=== PATIENT | female | born 1985 | race Two or more races ===

== ENCOUNTER 2016-07-03 17:42 | Emergency (ER) | payer SELFPAY ==
[~2016-07-03] VITALS: Ht 160 cm; Wt 44.9 kg
--- NOTE | 2016-07-03 17:52 | NUR ---
PT [facility]IBRA TO ER BED 12. ALTERED, AGITATED POSSIBLE ETOH. PER REPORT, PT WAS BREAKING STUFF IN HER APARTMENT. WENT OUTSIDE AND WAS ROLLING IN THE DIRT. NO OBVIOUS TRAUMA NOTED. PLACED ON MONITOR. STABLE VITALS. AWAITING MD ROMO.
--- NOTE | 2016-07-03 17:55 | NUR ---
vel leach at bedside for eval.
--- NOTE | 2016-07-03 18:10 | NUR ---
PT TO RADIOLOGY FOR HEAD CT SCAN VIA [facility].
--- NOTE | 2016-07-03 20:30 | NUR ---
LUCY GUTIERREZ BACK AT BEDSIDE TALKING TO PT AND FAMILY. PT IS AWAKE VERBALLY RESPONSIVE. FAMILY ASSUMING RESPONSIBILTY AND WILL LIKE TO TAKE PT HOME. CLEARED FOR DISCHARGE.
--- NOTE | 2016-07-03 20:54 | NUR ---
Patient discharged to home in stable condition. Written and verbal after care instructions given. Patient and Family verbalizes understanding of instruction.
[2016-07-03 20:56] VITALS: BP 115/61
== END 2016-07-03 20:57 | disposition home or self-care (01) ==
LOC: ER 17:46
DX: F10.129 Alcohol abuse with intoxication, unspecified (principal); R94.02 Abnormal brain scan
CPT/HCPCS: 70450; 99284; A4606; Z7610

== ENCOUNTER 2016-07-19 02:42 | Emergency (ER) | payer SELFPAY ==
[~2016-07-19] VITALS: Ht 152.4 cm; Wt 43.1 kg
--- NOTE | 2016-07-19 02:50 | NUR ---
TO BED 8 A 31 YO FEMALE BB RA102. PER EMS REPORT, PT WAS HITTING HEAD ON GROUND TRYING TO HURT SELF EMS REGISTERED CLINICAL DIETITIAN STATED BOYFRIEND ON SCENE ALLEGEDLY WITNESSED PT SMOKE METH. UPON ARRIVAL TO ER, PATIENT IS AAOX2, NO S/S OF ACUTE DISTRESS. BREATHING EVEN AND UNLABORED. NO OBVIOUS SIGNS OF HEAD TRAUMA. VSS. DENIES SI/HI. INITIATED COMFORT MEASURES. GOWNED. SAFETY AND SUICIDE PRECAUTIONS OBSERVED. CARDIAC MONITORING ON. DR CH AT BEDSIDE FOR EVAL.
[2016-07-19] MEDS ORDERED: IV NS 0.9% 1,000 ML BAG IV ONE ×2 (03:00→04:30)
[2016-07-19] MEDS ORDERED: IV NS 0.9% 1,000 ML ONE (03:09)
[2016-07-19] MEDS ORDERED: IV SET PRIMARY 1 EA INFUS.SET MC ONE (03:09)
[2016-07-19] MEDS ORDERED: OLANZAPINE 10 MG VIAL IM ONE ×2 (03:20→03:30)
[2016-07-19] MEDS ORDERED: WATER FOR INJECTION,STERILE 10 ML ONE (03:22)
[2016-07-19 03:43] LABS: BASOPHILS % (AUTO) 0.4 % (0.0-2.0); EOSINOPHILS % (AUTO) 0.3 % (0.0-6.0); HEMATOCRIT 38 % (33-45); LYMPHOCYTES # (AUTO) 1.1 /CMM (0.8-4.8); LYMPHOCYTES % (AUTO) 19.9 % (20.0-44.0); MEAN CORPUSCULAR HEMOGLOBIN 30 PG (26.0-33.0); MEAN CORPUSCULAR HGB CONC 34 g/dl (31.0-36.0); MEAN CORPUSCULAR VOLUME 88 fL (82-100); MONOCYTES # (AUTO) 0.6 /CMM (0.1-1.30); MONOCYTES % (AUTO) 9.8 % (2.0-12.0); NEUTROPHILS % (AUTO) 69.6 % (43.0-81.0); PLATELET COUNT (AUTO) 340 /CMM (150-450); RDW COEFFICIENT OF VARIATION 13.3 (11.5-15.0); WHITE BLOOD COUNT (AUTO) 5.7 K/uL (4.3-11.0)
--- NOTE | 2016-07-19 03:51 | NUR ---
patient to ct.
[2016-07-19 03:53] LABS: CALCIUM, SERUM 9.6 mg/dL (8.5-10.1); CARBON DIOXIDE 23 mmol/L (21-32); CHLORIDE 101 mmol/L (98-107); CREATININE 0.9 mg/dL (0.6-1.3); GLUCOSE 86 mg/dL (74-106); POTASSIUM 2.9 mmol/L (3.5-5.1); SODIUM SERUM 137 mmol/L (136-145); UREA NITROGEN, BLOOD 12 mg/dL (7-18)
[2016-07-19 03:55] LABS: INR 0.96 (0.87-1.13); PROTHROMBIN TIME 10.3 SECS (9.5-12.7)
[2016-07-19 03:58] LABS: ALANINE AMINOTRANSFERASE 34 U/L (12-78); ALBUMIN 4.4 g/dL (3.4-5.0); ALCOHOL, BLOOD < 3 mg/dL (0-0); ALKALINE PHOSPHATASE 76 U/L (46-116); ASPARTATE AMINOTRANSFERASE 34 U/L (15-37); BILIRUBIN,DIRECT 0.2 mg/dL (0.0-0.2); BILIRUBIN,TOTAL 0.7 mg/dL (0.2-1.0); TOTAL PROTEIN, SERUM 8.3 g/dL (6.4-8.2)
[2016-07-19] MEDS ORDERED: LORAZEPAM INJ 2 MG/ML VIAL ONE (03:58)
[2016-07-19 04:00] LABS: ACETAMINOPHEN 0 ug/ml (10-30); SALICYLATE 0.8 mg/dL (2.8-20.0)
[2016-07-19] MEDS ORDERED: LORAZEPAM INJ 2 MG/ML VIAL IV ONE ×2 (04:00→04:30)
[2016-07-19 04:03] LABS: SERUM AMMONIA 17 umol/L (11-32); TROPONIN I < 0.017 ng/mL (0.00-0.056)
[2016-07-19] MEDS ORDERED: Magnesium 1GM/D5W 100ML PREMIX 100 ML IV ONE ×2 (04:15→04:16)
[2016-07-19] MEDS ORDERED: IV SET PRIMARY PUMP SET 1 EA INFUS.SET MC ONE (04:15)
[2016-07-19] MEDS ORDERED: Magnesium 1 GM/2 ML VIAL IV ONE (04:30)
[2016-07-19] MEDS ORDERED: POTASSIUM CHLORIDE 20 MEQ TAB.PRT.SR PO ONE (04:30)
--- NOTE | 2016-07-19 04:54 | NUR ---
PATIENT IS SLEEPING AT THIS TIME. VSS MONITORING DONE.
[2016-07-19] MEDS ORDERED: POTASSIUM CHLORIDE 20 MEQ POWDER PACKET ONE (07:33)
--- NOTE | 2016-07-19 07:42 | NUR ---
POTASSIUM ORDERED AT 4:30 NOT GIVEN BY KEVAN RN, ATTEMPTED TO GIVE IT THIS MORNING BUT PATIENT REFUSED, DR PAREDES INFORMED AND SAID NOT TO WORRY ABOUT HER POTASSIUM.
[2016-07-19 17:11] VITALS: BP 125/67
== END 2016-07-19 17:15 | disposition home or self-care (01) ==
LOC: ER 02:43
DX: S09.90XA Unspecified injury of head, initial encounter (principal); F15.10 Other stimulant abuse, uncomplicated; R51 Headache; R79.1 Abnormal coagulation profile; W22.8XXA Striking against or struck by other objects, initial encounter; Y93.89 Activity, other specified; Y92.89 Other specified places as the place of occurrence of the external cause; Y99.9 Unspecified external cause status
CPT/HCPCS: 36415; 70450-TC; 80048-TC; 80076-TC; 82140-TC; 82962-TC; 84484-TC; 85025-TC; 85730-TC; A4606; G0480; J2060; J3475; J3490; J7030; Z7610

== ENCOUNTER 2016-08-11 03:04 | Emergency (ER) | payer SELFPAY ==
[~2016-08-11] VITALS: Ht 144.8 cm; Wt 40.8 kg
[2016-08-11] MEDS ORDERED: diphenhydrAMINE HCL 50 MG/ML VIAL ONE (03:06)
[2016-08-11] MEDS ORDERED: LORAZEPAM INJ 2 MG/ML VIAL ONE ×2 (03:07→03:18)
[2016-08-11] MEDS ORDERED: HALOPERIDOL LACTATE INJ 5 MG/ML VIAL ONE (03:07)
[2016-08-11] MEDS ORDERED: IV NS 0.9% 1,000 ML ONE (03:22)
[2016-08-11] MEDS ORDERED: IV SET PRIMARY 1 EA INFUS.SET MC ONE (03:22)
[2016-08-11] MEDS ORDERED: IV NS 0.9% 1,000 ML BAG IV ONE (03:30)
[2016-08-11] MEDS ORDERED: diphenhydrAMINE HCL 50 MG/ML VIAL IM ONE (03:30)
[2016-08-11] MEDS ORDERED: LORAZEPAM INJ 2 MG/ML VIAL IVP ONE (03:30)
[2016-08-11] MEDS ORDERED: HALOPERIDOL LACTATE INJ 5 MG/ML VIAL IM ONE (03:30)
[2016-08-11 04:06] LABS: BASOPHILS % (AUTO) 0.3 % (0.0-2.0); EOSINOPHILS # (AUTO) 0.1 /CMM (0.0-0.7); EOSINOPHILS % (AUTO) 1.1 % (0.0-6.0); HEMATOCRIT 37 % (33-45); HEMOGLOBIN 12.7 g/dL (11.5-14.8); LYMPHOCYTES # (AUTO) 1.5 /CMM (0.8-4.8); LYMPHOCYTES % (AUTO) 30.4 % (20.0-44.0); MEAN CORPUSCULAR HEMOGLOBIN 31 PG (26.0-33.0); MEAN CORPUSCULAR HGB CONC 34 g/dl (31.0-36.0); MEAN CORPUSCULAR VOLUME 89 fL (82-100); MONOCYTES # (AUTO) 0.5 /CMM (0.1-1.30); MONOCYTES % (AUTO) 11.3 % (2.0-12.0); NEUTROPHILS # (AUTO) 2.8 /CMM (1.8-8.9); NEUTROPHILS % (AUTO) 56.9 % (43.0-81.0); PLATELET COUNT (AUTO) 313 /CMM (150-450); RDW COEFFICIENT OF VARIATION 13.6 (11.5-15.0); RED BLOOD CELL COUNT(AUTO) 4.18 MIL/uL (4.0-5.2); WHITE BLOOD COUNT (AUTO) 4.9 K/uL (4.3-11.0)
[2016-08-11 04:21] LABS: INR 0.92 (0.87-1.13); PROTHROMBIN TIME 9.8 SECS (9.5-12.7)
[2016-08-11 04:23] LABS: CALCIUM, SERUM 8.8 mg/dL (8.5-10.1); CREATININE 0.8 mg/dL (0.6-1.3)
[2016-08-11 04:27] LABS: ALBUMIN 3.8 g/dL (3.4-5.0); BILIRUBIN,TOTAL 0.3 mg/dL (0.2-1.0); TOTAL PROTEIN, SERUM 7.5 g/dL (6.4-8.2)
[2016-08-11 04:30] LABS: SALICYLATE 1.3 mg/dL (2.8-20.0)
[2016-08-11] MEDS ORDERED: POTASSIUM CHLORIDE 20 MEQ TAB.PRT.SR PO ONE ×2 (04:55→05:00)
[2016-08-11] MEDS ORDERED: Magnesium 1GM/D5W 100ML PREMIX 200 ML IV ONE (04:56)
[2016-08-11] MEDS ORDERED: IV SET PRIMARY PUMP SET 1 EA INFUS.SET MC ONE (04:56)
[2016-08-11] MEDS ORDERED: Magnesium 1 GM/2 ML VIAL IV ONE (05:00)
[2016-08-11 06:44] LABS: APPEARANCE,URINE CLEAR (CLEAR); BILIRUBIN,URINE NEGATIVE (NEGATIVE); BLOOD, URINE TRACE-INTA Ery/uL (NEGATIVE); KETONES,URINE NEGATIVE (NEGATIVE); LEUKOCYTE ESTERASE ,URINE NEGATIVE (NEGATIVE); NITRITE, URINE NEGATIVE (NEGATIVE); PROTEIN,URINE NEGATIVE (NEGATIVE); UGLUCOSE NEGATIVE (NEGATIVE); UROBILINOGEN,URINE 0.2 EU/dL (0.2)
[2016-08-11 06:46] LABS: COLOR,URINE STRAW (YELLOW)
[2016-08-11 06:47] LABS: PREGNANCY TEST URINE QUAL NEGATIVE (NEGATIVE)
[2016-08-11 06:59] LABS: BACTERIA,URINE Rare /HPF (None Seen); RBC,URINE 0-2 /HPF (0-2); SQUAMOUS EPITHELIAL CELL,UR Rare /HPF (None Seen); WBC,URINE 0-2 /HPF (0-3)
[2016-08-11 08:38] VITALS: BP 115/78
== END 2016-08-11 08:39 | disposition home or self-care (01) ==
LOC: ER 03:05
DX: R41.82 Altered mental status, unspecified (principal); F19.10 Other psychoactive substance abuse, uncomplicated; E87.6 Hypokalemia
CPT/HCPCS: 36415; 80048; 80076; 80305; 80329; 81001; 84703; 85025; 85610; 96361; 96365; 96375; 99285; A4606; G0480 ×2; J1200; J1630; J2060 ×2; J3475; J7030; Z7610; 81000-TC